=== PATIENT | female | born 1950 | race Caucasian/White ===

== ENCOUNTER → 2016-05-30 | Outpatient (CLI) | payer MEDICARE, OTHER ==
[~2016-05-30] MED LIST: ALDACTONE100 MG PO; CALCIUM 500 +1 EACH PO; DILANTIN 100 M100 MG PO; FENOFIBRATE160 MG PO; FLOMAX 0.4 MG0.4 MG PO; FOLIC ACID 1 MG1 MG PO; HYDROXYZINE HCL50 MG PO; ISOSORBIDE DINI20 MG PO; LACTULOSE10 GM/152 PO; LASIX20 MG PO; LINZESS290 MCG PO; MELATONIN3 MG PO; METOPROLOL TART25 MG PO; PROTONIX40 MG PO; RANEXA500 MG PO; REGLAN10 MG PO; REQUIP1 MG PO; ROXICODONE15 MG PO; VITAMIN B-1000 MCG/M SC; ZOCOR10 MG PO
== END ==
LOC: OPSV 10:57
DX: Z00.00 Encounter for general adult medical examination without abnormal findings (principal); Z95.828 Presence of other vascular implants and grafts; G40.909 Epilepsy, unspecified, not intractable, without status epilepticus
CPT/HCPCS: 96523; J1642

== ENCOUNTER → 2016-06-27 | Outpatient (CLI) | payer MEDICARE | LOC: OPSV 10:40 | DX: Z00.00 Encounter for general adult medical examination without abnormal findings (principal); G40.909 Epilepsy, unspecified, not intractable, without status epilepticus; Z95.828 Presence of other vascular implants and grafts | CPT/HCPCS: 96523; J1642 ==

== ENCOUNTER → 2016-07-23 | Outpatient (CLI) | payer MEDICARE | LOC: OPSV 15:46 | DX: Z00.00 Encounter for general adult medical examination without abnormal findings (principal); Z95.828 Presence of other vascular implants and grafts; G40.909 Epilepsy, unspecified, not intractable, without status epilepticus | CPT/HCPCS: 96523; J1642 ==

== ENCOUNTER → 2016-08-21 | Outpatient (CLI) | payer MEDICARE | LOC: OPSV 08-20 14:30 | DX: Z00.00 Encounter for general adult medical examination without abnormal findings (principal); Z98.890 Other specified postprocedural states; G40.909 Epilepsy, unspecified, not intractable, without status epilepticus | CPT/HCPCS: 96523; J1642 ==

== ENCOUNTER → 2016-11-13 | Outpatient (CLI) | payer MEDICARE ==
[2016-11-13 12:58] LABS: HEMOGLOBIN 10.9 gm/dl (12.3-15.3); RED BLOOD COUNT 3.23 M/UL (4.00-5.10); WHITE BLOOD COUNT 6.5 K/UL (4.5-11.0)
[2016-11-13 13:14] LABS: BUN/CREATININE RATIO 16 (0-10)
== END ==
LOC: OPSV 11:49
PROVIDERS: Family Medicine
DX: Z00.00 Encounter for general adult medical examination without abnormal findings (principal); E11.65 Type 2 diabetes mellitus with hyperglycemia; E78.5 Hyperlipidemia, unspecified; I10 Essential (primary) hypertension; K74.60 Unspecified cirrhosis of liver; N28.9 Disorder of kidney and ureter, unspecified; M81.0 Age-related osteoporosis without current pathological fracture; G40.909 Epilepsy, unspecified, not intractable, without status epilepticus; Z95.828 Presence of other vascular implants and grafts
CPT/HCPCS: 80048; 80061; 80076; 83036; 84443; 85025; 96523; J1642